=== PATIENT | female | born 1960 | race Caucasian/White ===

== ENCOUNTER → 2018-01-17 | Outpatient (CLI) | payer BC | LOC: MC.RAD 09:35 | DX: Z12.31 Encounter for screening mammogram for malignant neoplasm of breast (principal); Z85.3 Personal history of malignant neoplasm of breast; Z98.890 Other specified postprocedural states ==

== ENCOUNTER 2018-09-01 05:35 | Emergency (ER) | payer BC ==
[~2018-09-01] VITALS: Ht 152.4 cm; Wt 97.7 kg
[2018-09-01 05:40] VITALS: TEMP 98
[2018-09-01] MEDS ORDERED: PROAIR HFA0.09 MG/AC IH (05:55)
[2018-09-01] MEDS ORDERED: ZITHROMAX Z PA250 MG PO (05:55)
[2018-09-01] MEDS ORDERED: PREDNISONE20 MG PO (05:55)
[2018-09-01 06:42] VITALS: BP 102/50; PULSE 80
== END 2018-09-01 06:44 | disposition home or self-care (01) ==
LOC: COL.ER 05:35
DX: J20.9 Acute bronchitis, unspecified (principal); Z90.710 Acquired absence of both cervix and uterus; Z87.891 Personal history of nicotine dependence
CPT/HCPCS: J7512

== ENCOUNTER → 2019-02-04 | Outpatient (CLI) | payer BC ==
[~2019-02-04] MED LIST: PREDNISONE20 MG PO; PROAIR HFA0.09 MG/AC IH; ZITHROMAX Z PA250 MG PO
== END ==
LOC: MC.RAD 12:44
DX: Z12.31 Encounter for screening mammogram for malignant neoplasm of breast (principal)

== ENCOUNTER → 2020-02-06 | Outpatient (CLI) | payer BC | LOC: MC.RAD 12:56 | DX: Z12.31 Encounter for screening mammogram for malignant neoplasm of breast (principal); Z98.890 Other specified postprocedural states ==

== ENCOUNTER → 2021-03-02 | Outpatient (CLI) | payer BC | LOC: MC.RAD 11:15 | DX: Z12.31 Encounter for screening mammogram for malignant neoplasm of breast (principal) ==

== ENCOUNTER → 2022-05-12 | Outpatient (CLI) | payer BC | LOC: MC.RAD 09:41 | DX: N63.20 Unspecified lump in the left breast, unspecified quadrant (principal) ==

== ENCOUNTER 2022-08-12 13:02 | Emergency (ER) | payer BC ==
[~2022-08-12] VITALS: Ht 152.4 cm; Wt 100.0 kg
[2022-08-12 13:44] LABS: BASO % 0.4 % (0.0-2.0); EOS # 0.3 K/mm3 (0.0-0.7); EOS % 4.3 % (0.0-4.0); GRAN # 4.5 K/mm3 (1.4-6.5); GRAN % 66.2 % (42.2-75.2); HEMATOCRIT 46.3 % (37.0-47.0); HEMOGLOBIN 15.3 g/dl (12.5-16.0); LYMPH # 1.6 K/mm3 (1.2-3.4); LYMPH % 23.1 % (20.0-51.0); MEAN CELL VOLUME 95 fl (80.0-100.0); MEAN CORPUSCULAR HEMOGLOBIN 31 pg (27-31); MEAN CORPUSCULAR HGB CONC 33 g/dl (33.0-37.0); MEAN PLATELET VOLUME 10.8 fl (7.4-10.4); MONO # 0.4 K/mm3 (0.1-0.6); MONO % 5.7 % (1.7-9.3); PLATELET COUNT 254 K/mm3 (130-400); REDCELL DISTRIBUTION WIDTH-CV 12.7 % (11.5-14.5)
[2022-08-12 14:12] LABS: ALANINE AMINOTRANSFERASE 47 U/L (0-55); ALBUMIN 3.9 gm/dL (3.4-4.8); ALKALINE PHOSPHATASE 119 U/L (40-150); ANION GAP 11 mmol/L (7-16); AST,SGOT 37 U/L (5-34); BILIRUBIN,TOTAL 0.6 mg/dL (0.2-1.2); BLOOD UREA NITROGEN 12 mg/dL (10-20); C-REACTIVE PROTEIN 1.02 mg/dL (0.00-0.50); CARBON DIOXIDE 21 mmol/L (23-31); CHLORIDE 110 mmol/L (98-107); CREATININE, serum 0.77 mg/dL (0.57-1.11); GLUCOSE 146 mg/dL (70-99); POTASSIUM 4.1 mmol/L (3.5-4.5); SODIUM 142 mmol/L (136-145); TOTAL PROTEIN 7.2 gm/dL (6.2-8.1)
[2022-08-12 14:34] LABS: TROPONIN-I < 0.010 ng/mL (0.00-0.033)
[2022-08-12] MEDS ORDERED: PREDNISONE20 MG PO (15:45)
[2022-08-12 16:12] VITALS: BP 118/76; PULSE 114; TEMP 98.3
== END 2022-08-12 16:06 | disposition home or self-care (01) ==
LOC: COL.ER 13:02
PROVIDERS: Nurse Practitioner
DX: J20.9 Acute bronchitis, unspecified (principal); Z86.16 Personal history of COVID-19; Z28.310 Unvaccinated for COVID-19
CPT/HCPCS: J2930; J7030

== ENCOUNTER 2023-05-01 05:45 | Day surgery (SDC) | payer BC ==
[~2023-05-01] VITALS: Ht 152.4 cm; Wt 101.3 kg
[2023-05-01] VITALS (14 sets, daily range): BP systolic 96–137; BP diastolic 56–72; PULSE 82–96; TEMP 97.3–99.7
[~2023-05-01 05:45] MED LIST changes: +Famotidine 20 MG TAB PO SCH; +LR 1,000 ML IV SCH; +Meclizine 25 MG TAB PO SCH
[2023-05-01] MEDS ORDERED: Celecoxib 200 MG CAP PO SCH (06:00)
[2023-05-01] MEDS ORDERED: Gabapentin 100 MG CAP PO SCH (06:00)
[2023-05-01] MEDS ORDERED: Acetaminophen 500 MG TAB PO SCH ×2 (06:00→11:47)
[2023-05-01] MEDS ORDERED: ALLEGRA ALLERGY60 MG PO (06:36)
[2023-05-01] MEDS ORDERED: Lidocaine PF 2% (20 MG/ML) 5 ML VIAL ONE (07:16)
[2023-05-01] MEDS ORDERED: Ondansetron 4 MG/2 ML VIAL ONE (07:16)
[2023-05-01] MEDS ORDERED: fentaNYL 50 MCG/ML 5 ML VIAL ONE (07:17)
[2023-05-01] MEDS ORDERED: Rocuronium 50 MG/5 ML Multi-Dose VIAL ONE ×2 (07:17→08:24)
[2023-05-01] MEDS ORDERED: Lidocaine 1% w EPI (1:100,000) 20 ML Multi-Dose VIAL SQ ONE (08:00)
[2023-05-01] MEDS ORDERED: Topical Skin Adhesive 1 EACH (1 ML) TOP ONE (08:00)
[2023-05-01] MEDS ORDERED: Indocyanine Green 25 MG KIT UR ONE (08:00)
[2023-05-01] MEDS ORDERED: Ondansetron 4 MG/2 ML VIAL IV PRN ×2 (08:30→11:00)
[2023-05-01] MEDS ORDERED: fentaNYL 50 MCG/ML 2 ML VIAL IV PRN (08:30)
[2023-05-01] MEDS ORDERED: HYDROmorphone 2 MG/1 ML VIAL IV PRN (08:30)
[2023-05-01] MEDS ORDERED: ePHEDrine 50 MG/ML VIAL ONE (08:31)
[2023-05-01] MEDS ORDERED: Morphine 4 MG/ML VIAL IV PRN (11:00)
[2023-05-01] MEDS ORDERED: LR 1,000 ML IV SCH (11:00)
[2023-05-01] MEDS ORDERED: oxyCODONE 5 MG TAB PO PRN (11:00)
[2023-05-01] MEDS ORDERED: Naloxone 0.4 MG/ML VIAL IV PRN (11:00)
--- NOTE | 2023-05-01 12:08 | NUR ---
Pt arrived to surigcal floor by bed from surgery. Pt is alert and oriented x4. VSS. Pt is currently sleeping with no complaints of pain. Oriented pt to room and call light. Post op vital signs in place. Saavedra cather in place with yellowish/green urine draining into bag. SCDs on BLE. Admission intake complete. LR infusing at 75 mL into Lt AC with no complications. Report recieved from Cris by telephone. Pt has no request at this time. Call light within reach.
[2023-05-01] MEDS ORDERED: Gabapentin 100 MG CAP PO ONE (14:47)
--- NOTE | 2023-05-01 17:00 | NUR ---
CARE ASSUMED FOR PATIENT. PT IS RESTING IN BED WATCHING TV. PT IS AXOX3. PT IS ON RA. PT HAS INDWELLING CATH DRAINING YELLOW-GREEN URINE. PT HAS IVF THRU L AC IV. PT HAS CALL LIGHT AND INSTRUCTED TO CALL WITH ALL NEEDS.
[2023-05-01] MEDS ORDERED: Sennosides/Docusate 8.6-50 MG TAB PO SCH (21:00)
[2023-05-01] MEDS ORDERED: Fexofenadine 60 MG BID **** subs to Loratadine 10 MG DAILY PO SCH (21:00)
[2023-05-02] VITALS (7 sets, daily range): BP systolic 102–136; BP diastolic 66–83; PULSE 85–94; TEMP 97.8–98
[2023-05-02] MEDS ORDERED: Loratadine 10 MG TAB PO SCH (09:00)
--- NOTE | 2023-05-02 10:01 | NUR ---
PATIENT ALERT AND ORIENTED X4. VSS. PATIENT HERE FOR SATURNINO SACROCOLPOPEXY. LAP SITES X5 CDI WITH SKIN GLUE. IV TO LEFT AC INT. MONCADA DC'D. PATIENT TOLERATED WELL. PATIENT AMBULATED TO BATHROOM AND VOIDED WITH NO ISSUES. PATIENT UP TO CHAIR. PAIN AT MINIMUM. NO FURTHER NEEDS. CALL LIGHT IN REACH.
--- NOTE | 2023-05-02 10:18 | NUR ---
Initial visit; Patient noticibly in pain thanked Grave Cleaner for coming in to see her. She and Grave Cleaner discussed her 'Surgical Procedure' and the aftermath which is very uncomfortable. Patient thanked Grave Cleaner for offering prayer for healing rapidly and thoroughly and to keep her in Grave Cleaner's prayers.
--- NOTE | 2023-05-02 12:08 | NUR ---
DISCHARGE INSTRUCTIONS PROVIDED. PATIENT EDUCATION GIVEN. IV DC'D. FOLLOW UP APPOINTMENT DISCUSSED. MEDICATIONS REVIEWED. PATIENT ESCORTED OUT VIA WHEELCHAIR.
== END 2023-05-02 11:55 | disposition home health service (06) ==
LOC: SDCO 05:45 → SURG 12:00 → SDCO 05-02 11:55
DX: N99.3 Prolapse of vaginal vault after hysterectomy (principal); Z87.891 Personal history of nicotine dependence
CPT/HCPCS: OP; A4314; A9284; C1781; J0690; J1650; J2405; J2704; J3010; J7120

== ENCOUNTER → 2023-05-24 | Outpatient (CLI) | payer BC ==
[~2023-05-24] MED LIST changes: +ALLEGRA ALLERGY60 MG PO; -Famotidine 20 MG TAB PO SCH; -LR 1,000 ML IV SCH; -Meclizine 25 MG TAB PO SCH
== END ==
LOC: MC.RAD 10:55
DX: Z12.31 Encounter for screening mammogram for malignant neoplasm of breast (principal)